=== PATIENT | female | born 1990 | race African-American/Black ===

== ENCOUNTER 2022-06-21 08:39 | Emergency (ER) | payer OTHER, SELFPAY ==
--- NOTE | ~2022-06-21 | US_ITS ---
EXAMINATION: US pelvic complete DATE: 06/21/2022 10:54 INDICATION: Heavy vaginal bleeding. TECHNIQUE: Multiple transabdominal sonographic images of the pelvis were obtained. COMPARISON: None. FINDINGS: The uterus measures 10.8 x 6.4 x 8.0 cm. There is no free fluid in the pelvis. There are least 4 uter ine fibroids. For example, there is a 4.4 cm submucosal fibroid. There is a 2.5 cm intramural fibroid . There is a 2.6 cm submucosal fibroid. There is a 2.5 cm subserosal fibroid. The endometrial complex measures 3 mm in thickness. The right ovary is not visualized. The left ovary measures 3.3 x 4.7 x 1 .8 cm. There is normal vascular flow in left ovary. IMPRESSION: 1. Uterine fibroids. Reviewed, dictated and finalized at location A. IMPRESSION: 1. Uterine fibroids.
[2022-06-21 08:42] VITALS: BP 137/67; PULSE 60; RESP 20; TEMP 36.8; O2SAT 100
--- NOTE | 2022-06-21 09:10 | ED.FEMALEGU ---
HPI - Female Genitourinary General Chief complaint: Vaginal Bleeding Stated complaint: VAG BLEEDING Time Seen by Provider: 06/21/22 08:53 History of Present Illness HPI Narrative: Patient is a 32-year-old G3, P3 female here for evaluation of heavy vaginal bleeding over the past 10 days. Patient states that she started her menstrual cycle on time 10 days ago, it was normal in consistency for her, but she states that she has continued to spot and then has a another heavy day bleeding yesterday, passing several quarter sized blood clots. 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 Patient denies any lightheadedness, abdominal pain, back pain, fevers or chills. She has a history of a tubal ligation denies chance of . Related Data Allergies Allergy/AdvReac Type Severity Reaction Status Date / Time No Known Allergies Allergy Verified 06/21/22 09:06 Review of Systems Review of Systems: Gen.: Denies fevers or chills Eyes: Denies eye pain or visual change ENT: Denies congestion Respiratory: Denies shortness of breath or cough CV: Denies chest pain or palpitations GI: Denies abdominal pain nausea, emesis or diarrhea reports heavy vaginal bleeding. Denies burning, urgency, frequency or hematuria Musculoskeletal: Denies back pain or muscle pain Neuro: Denies numbness, tingling, weakness or focal weakness Skin: Denies rash Except as documented, all other systems reviewed and negative Exam Narrative: APPEARANCE: Well appearing, no pain in distress, well-nourished. Head: Normocephalic and atraumatic. EYES: PERRLA/EOMI, conjunctivae clear NOSE: No nasal drainage EARS: External ear normal in appearance THROAT: Oropharynx is clear. Mucous membranes are moist. NECK: Supple. No adenopathy, no masses. RESPIRATORY: Airway patent, respirations nonlabored. Clear to auscultation bilaterally, no rales, rhonchi, wheezing. CARDIOVASCULAR: Regular rate and rhythm without murmurs, rubs, or gallops. : cervical os is closed, no brisk vaginal bleeding noted, small amount of blood in vaginal vault ABDOMINAL: Normoactive bowel sounds. Soft, nontender, nondistended. No rebound tenderness or guarding. MUSCULOSKELETAL: Extremities are warm and well-perfused. Moves all extremities well. No edema. NEURO: Normal speech. No focal neurologic deficits. SKIN: Skin is warm and dry. No rashes. PSYCHIATRIC: Normal affect/mood. Course Vital Signs Vital signs: Vital Signs Temperature 98.3 F 06/21/22 08:42 Pulse Rate 60 06/21/22 08:42 Respiratory Rate 20 06/21/22 08:42 Blood Pressure 137/67 06/21/22 08:42 Pulse Oximetry 100 06/21/22 08:42 Oxygen Delivery Room Air 06/21/22 08:42 Temperature 98.3 F 06/21/22 08:42 Pulse Rate 60 06/21/22 08:42 Respiratory Rate 20 06/21/22 08:42 Blood Pressure 137/67 06/21/22 08:42 Pulse Oximetry 100 06/21/22 08:42 Oxygen Delivery Room Air 06/21/22 08:42 MDM - Female Genitourinary MDM Narrative Medical decision making narrative: 32-year-old female here for evaluation of heavy vaginal bleeding extending past her normal menstrual cycle for the past 5 days. Here she is nontoxic-appearing with normal vital signs, has no abdominal tenderness on exam. Urine is negative. She has a normocytic anemia with a hemoglobin of 8.6, patient tells me that she has been profoundly anemic in the past due to heavy menstrual cycles and is supposed to be taking iron supplementation, which she has not been. Her pelvic ultrasound revealed several small uterine fibroids which she was aware of. Her pelvic exam shows no brisk vaginal bleeding; cervical os is closed. Patient declines Provera as she tries to avoid hormones. We will send iron supplementation to the pharmacy for patient to take. Bleeding likely due to fibroids. She was encouraged
[2022-06-21 09:32] LABS: Basophils Percent Auto 0.8 % (0.2-1.2); Eosinophils Percent Auto 0.8 % (0-4.4); Hematocrit 28.4 % (37.0-47.0); Hemoglobin 8.6 g/dL (12.0-15.0); Immature Granulocyte Absolute 0.01 K/mm3 (0.00-0.031); Immature Granulocyte Percent A 0.3 % (0-0.5); Lymphocytes Absolute Auto 1.59 K/mm3 (0.9-3.2); Lymphocytes Percent Auto 40.5 % (18.3-44.2); Mean Corpuscular HGB Conc 30.3 g/dl (32-36); Mean Corpuscular Hemoglobin 25.4 pg (26-34); Mean Corpuscular Volume 83.8 fl (80-100); Mean Platelet Volume 11.2 fl (7.4-10.4); Monocytes Absolute Auto 0.2 K/mm3 (0.1-0.6); Monocytes Percent Auto 5.9 % (2.6-8.5); Neutrophils Percent Auto 51.7 % (45.5-73.1); Platelet Count Result 291 k/mm3 (150-375); Red Blood Count 3.39 M/mm3 (4.2-5.4); Red Cell Distribution Width 15.2 % (11.5-14.5); White Blood Count 3.9 K/mm3 (4.5-10.0)
[2022-06-21 09:40] LABS: Anion Gap 8 mmol/L (8-16); Blood Urea Nitrogen 10 mg/dL (7-17); Calcium 9.1 mg/dL (8.4-10.2); Carbon Dioxide 24 mmol/L (22-30); Chloride 107 mmol/L (98-107); Estimated Glomerular Filt Rate > 60; Glucose 94 mg/dL (65-110); Potassium 4.1 mmol/L (3.4-5.0); Sodium 139 mmol/L (137-145)
--- NOTE | 2022-06-21 10:24 | PC.NURSE ---
pt in ultrasound
[2022-06-21 12:15] LABS: Beta HCG Quantitative < 2.39 mIU/ML
== END 2022-06-21 12:13 | disposition home or self-care (01) ==
PROVIDERS: Physician Assistant; Emergency Provider Emergency Medicine
DX: D25.9 Leiomyoma of uterus, unspecified (principal); D64.9 Anemia, unspecified; T45.4X6A Underdosing of iron and its compounds, initial encounter; Z91.128 Patient's intentional underdosing of medication regimen for other reason
CPT/HCPCS: 36415; 76856; 80048; 81025; 84702; 85025; 86850; 86900; 86901; 99284

== ENCOUNTER 2023-01-31 08:32 | Emergency (ER) | payer OTHER, SELFPAY ==
--- NOTE | ~2023-01-31 | XR_ITS ---
Portable chest x-ray Comparison: None Clinical History: Cough Findings: Lungs are clear, without focal consolidation or pleural effusion. Cardiomediastinal silho uette is stable. Bones and soft tissues are unremarkable. Impression: Normal chest. Reviewed, dictated and finalized at location M. Impression: Normal chest.
[2023-01-31 08:35] VITALS: BP 129/77; PULSE 114; RESP 16; TEMP 36.9; O2SAT 100
[2023-01-31] MEDS: IBUPROFEN 400 MG TABLET 800 MG PO (08:58)
[2023-01-31 09:21] LABS: Strep Group A RT-PCR DETECTED (Negative)
--- NOTE | 2023-01-31 09:22 | ED.URI ---
HPI - URI/Sore Throat General Chief Complaint: Upper Respiratory Infection Stated Complaint: flu sx Time Seen by Provider: 01/31/23 08:37 History of Present Illness HPI Narrative: Pt presents with fever, runny nose, cough and sore throat for 3 days. Pt syas the fever comes down with tylenol. Max 101. Pt denies vomiting or diarrhea. Pt has bodya ches. Related Data Allergies Allergy/AdvReac Type Severity Reaction Status Date / Time No Known Allergies Allergy Verified 06/21/22 09:06 Review of Systems Review of Systems: All systems reviewed & are unremarkable except as noted in HPI and below Exam Const: General: healthy appearing Nutritional Appearance: well nourished Orientation/consciousness: patient oriented x3 Limitations: no limitations HENMT: Face/Nose/Sinus: Nasal discharge present Mouth: Yes Normal oral and palatal mucosa present Other: pharynx erytematous no exudate. Neck: Neck: normal visual inspection, no lymphadenopathy and no meningeal signs Resp: Effort & Inspection: normal respiratory effort Auscultation: clear to auscultation bilaterally Cardio: Rate: regular rate Rhythm: regular rhythm GI: GI Palp: Yes Soft to palpation Auscultation: normal bowel sounds Back/Spine/Pelvis: Back: no CVA tenderness Skin: General skin exam: normal color Wounds: no wounds Neuro: General: patient oriented x3 Speech: normal speech Extrem: General: normal to inspection and no clubbing, cyanosis or edema Psych: Mental Status: mental status grossly normal Affect: normal affect Attitude: cooperative Course Vital Signs Vital signs: Vital Signs Temperature 98.4 F 01/31/23 08:35 Pulse Rate 114 H 01/31/23 08:35 Respiratory Rate 16 01/31/23 08:35 Blood Pressure 129/77 01/31/23 08:35 Pulse Oximetry 100 01/31/23 08:35 Oxygen Delivery Room Air 01/31/23 08:35 Temperature 98.4 F 01/31/23 08:35 Pulse Rate 114 H 01/31/23 08:35 Respiratory Rate 16 01/31/23 08:35 Blood Pressure 129/77 01/31/23 08:35 Pulse Oximetry 100 01/31/23 08:35 Oxygen Delivery Room Air 01/31/23 08:35 MDM - URI/Sore Throat MDM Narrative Medical decision making narrative: covid flu cxr neg, strep positive Differential Diagnosis Differential diagnosis: Likely upper respiratory infection, viral infection, bronchitis, influenza, pharyngitis and other (pneumonia) Lab Data Labs: Lab Results 01/31/23 Range/Units 08:46 Influenza A (RT-PCR) Negative (Negative) Influenza B (RT-PCR) Negative (Negative) SARS-CoV-2 RNA (RT-PCR) Negative (Negative) Group A Strep (PCR) Detected A (Negative) Discharge Plan Discharge Clinical Impression: Strep pharyngitis Patient Disposition: Home, Self-Care Condition: Stable Instructions: Antibiotic Form, Strep Throat (ED) Prescriptions: New amoxicillin 500 mg capsule 500 mg PO Q8H Qty: 30 0RF No Action ferrous sulfate [Iron (ferrous sulfate)] 325 mg (65 mg iron) tablet 325 mg PO DAILY Qty: 14 0RF Follow-up/Referrals: PHYSICIAN NOT ON STAFF,NONSTAFF [Primary Care Provider] -
[2023-01-31 09:39] LABS: Influenza A QL RT-PCR Negative (Negative); Influenza B QL RT-PCR Negative (Negative); SARS-CoV-2 RNA PCR Negative (Negative)
== END 2023-01-31 10:30 | disposition home or self-care (01) ==
PROVIDERS: Emergency Provider Emergency Medicine
DX: J02.0 Streptococcal pharyngitis (principal); Z20.822 Contact with and (suspected) exposure to COVID-19
CPT/HCPCS: 71045; 87636; 87651; 99283; A9270

== ENCOUNTER 2023-03-13 04:48 | Emergency (ER) | payer OTHER, SELFPAY ==
[2023-03-13 04:49] VITALS: BP 102/60; PULSE 82; RESP 16; TEMP 36.6; O2SAT 100
--- NOTE | 2023-03-13 05:08 | ED.GENADULT ---
HPI - General Adult General Chief complaint: Abdominal Pain Stated complaint: lower abd cramping Time Seen by Provider: 03/13/23 05:01 History of Present Illness HPI narrative: This is a 33-year-old female history of severe menstrual cramps and fibroids presenting with menstrual cramping. Patient said that her cycle started 2 days ago that. She has been having progressively worse cramping. It is in lower abdomen and radiates to her back. She has taken Motrin with no relief. This is the patient's typical menstrual cramping except worse in intensity. Patient is scheduled to have her uterus removed next month. Patient denies any other complaints. patient denies urinary complaints. No vaginal discharge or irritation. Related Data Allergies Allergy/AdvReac Type Severity Reaction Status Date / Time No Known Allergies Allergy Verified 06/21/22 09:06 [facility] Past Medical History Medical History Fibroid Exam Narrative: APPEARANCE: No apparent distress. well-appearing Head: atraumatic. EYES: EOMI, NOSE: Atraumatic NECK: Trachea midline RESPIRATORY: No increased rate of breathing, clear to auscultation CARDIOVASCULAR: RRR, ABDOMINAL: soft, nontender no guarding or rebound no CVA tenderness MUSCULOSKELETAl: No obvious deformities NEURO: Alert. Moving 4/4 extremities SKIN:: Warm, dry. Normal color PSYCHIATRIC: Normal affect Course Vital Signs Vital signs: Vital Signs Temperature 97.8 F 03/13/23 04:49 Pulse Rate 82 03/13/23 04:49 Respiratory Rate 16 03/13/23 04:49 Blood Pressure 102/60 03/13/23 04:49 Pulse Oximetry 100 03/13/23 04:49 Oxygen Delivery Room Air 03/13/23 04:49 Temperature 97.8 F 03/13/23 04:49 Pulse Rate 82 03/13/23 04:49 Respiratory Rate 16 03/13/23 04:49 Blood Pressure 102/60 03/13/23 04:49 Pulse Oximetry 100 03/13/23 04:49 Oxygen Delivery Room Air 03/13/23 04:49 Medical Decision Making [facility] Narrative Medical decision making narrative: -Presentation: 33-year-old female with history of severe menstrual cramps presenting with severe menstrual cramps. -DDX includes but is not limited to:Severe menstrual cramps, UTI. -Co-morbidities complicating care: Fibroids -Social determinants of health: patient works for her 's company, lives with and 2 children -External Chart Review: review of ER notes for heavy menstrual bleeding in June of 2022 -Hx from independent Sources: none -Independent interpretation of studies: U preg negative -Discussion of Management/Consultants: none -Dx tests considered but not ordered: none -Procedures: none -Interventions: 15 mg IM Toradol, 1000 mg Tylenol, [place] 5 mg -Shared decision making / Disposition: patient be discharged with OBGYN follow-up. -RX Motrin, Tylenol Vital Signs Vital Signs: Vital Signs Temperature 97.8 F 03/13/23 04:49 Pulse Rate 82 03/13/23 04:49 Respiratory Rate 16 03/13/23 04:49 Blood Pressure 102/60 03/13/23 04:49 Pulse Oximetry 100 03/13/23 04:49 Oxygen Delivery Room Air 03/13/23 04:49 Temperature 97.8 F 03/13/23 04:49 Pulse Rate 82 03/13/23 04:49 Respiratory Rate 16 03/13/23 04:49 Blood Pressure 102/60 03/13/23 04:49 Pulse Oximetry 100 03/13/23 04:49 Oxygen Delivery Room Air 03/13/23 04:49 Discharge Plan Discharge Clinical Impression: Fibroid, Crampy pain associated with menses Patient Disposition: Home, Self-Care Condition: Stable Instructions: Antibiotic Form, Dysmenorrhea (ED) Additional Instructions: You were seen in the emergency department for severe menstrual cramps. Please take Motrin Tylenol for pain control. Please follow-up with your OBGYN for your scheduled hysterectomy. Please return emergency department if you develop fevers severe abdominal pain or intractable nausea or vomiting. He can return any time for re
[2023-03-13] MEDS: ONDANSETRON HCL ODT 4 MG TABLET PO (05:13)
[2023-03-13] MEDS: ACETAMINOPHEN 500 MG TABLET 1000 MG PO (05:13)
[2023-03-13] MEDS: HYDROcodone/acetaminophen (*CRX) 5-325 MG TABLET 1 TAB PO (05:14)
[2023-03-13] MEDS: KETOROLAC 30 MG/ML VIAL (*BKC) 15 MG IM (05:14)
== END 2023-03-13 05:30 | disposition home or self-care (01) ==
LOC: ANHED 05:26
PROVIDERS: Emergency Provider Emergency Medicine
DX: D25.9 Leiomyoma of uterus, unspecified (principal); N94.6 Dysmenorrhea, unspecified
CPT/HCPCS: 81025; 96372; 99283; A9270; J1885

== ENCOUNTER 2024-03-18 17:14 | Emergency (ER) | payer BC, SELFPAY ==
--- NOTE | ~2024-03-18 | XR_ITS ---
EXAMINATION: XR chest 2V Exam Date/Time: 03/18/2024 18:35 CDT HISTORY: chest pain, Pt states pain to bilateral breasts x 1mth Comparison: 01/31/2023. RESULT: Lines, tubes, and devices: None. Lungs and pleura: Clear. Cardiomediastinal silhouette: Stable. Other: No acute osseous or upper abdominal finding. IMPRESSION: No acute cardiopulmonary process. Reviewed, dictated and finalized at location K.
[2024-03-18 17:24] VITALS: BP 118/61; PULSE 76; RESP 16; TEMP 36.5; O2SAT 100
--- NOTE | 2024-03-18 17:36 | ECG_ITS ---
Test Date: 2024-03-18 18:59:58 Measurements Intervals [place] Rate: 60 P: 51 [place]: 160 QRS: 56 QRSD: 97 T: 30 QT: 417 QTc: 419 Interpretive Statements SINUS RHYTHM INCOMPLETE RIGHT BUNDLE BRANCH BLOCK BORDERLINE ECG No previous ECG available for comparison Electronically Signed On 03-19-2024 06:16:29 CDT by Mike Salcido D.O.
--- NOTE | 2024-03-18 17:36 | ED.GENADULT ---
HPI - General Adult General Chief complaint: Unspecified Stated complaint: pain to sides of breasts bilaterally Time Seen by Provider: 03/18/24 17:31 Source: patient Mode of arrival: ambulatory Limitations: no limitations History of Present Illness HPI narrative: This is a 34 year old female that presents to the ER for bilateral chest pain. Reports radiation to her back. No known alleviating or exacerbating factors. Pain is achy in nature and intermittent. She hasn't been taking anything for pain. Reports she had a similar problem at the end of her menstrual cycle last month. She just got off of her cycle this month. Denies fever, cough, shortness of breath or swelling in her legs. Related Data Home Medications Medication Instructions Recorded Confirmed No Home Medications 03/18/24 03/18/24 Allergies Allergy/AdvReac Type Severity Reaction Status Date / Time No Known Allergies Allergy Verified 03/18/24 18:31 Review of Systems Review of Systems: CONSTITUTIONAL: Denies fever CARDIOVASCULAR: Reports chest pain. Denies palpitations, or edema. RESPIRATORY: Denies cough or dyspnea. All systems reviewed & are unremarkable except as noted in HPI and below PMFSH Past Medical History Medical History Fibroid Social History Social History (Updated 03/18/24 @ 17:38 by Denice Krause PA-C) Smoking status: Never smoker Exam Narrative: GENERAL: Well-appearing, well-nourished, and in no acute distress. HEAD: Normocephalic, atraumatic. EYES: EOMI. NECK: Supple. No JVD CHEST: Clear to auscultation. No respiratory distress. No wheezes rales or rhonchi HEART: Regular rate and rhythm. No murmur heard. Normal peripheral pulses. EXTREMITIES: Normal range of motion. No edema. SKIN: Warm, dry, no rash. NEURO: No focal deficits. Alert and oriented x3. PSYCH: Normal mood and affect Course Course Emergency Course: patient updated on her workup agrees with plan of care Vital Signs Vital signs: Vital Signs Temperature 97.7 F 03/18/24 17:24 Pulse Rate 76 03/18/24 17:24 Respiratory Rate 16 03/18/24 17:24 Blood Pressure 118/61 03/18/24 17:24 Pulse Oximetry 100 03/18/24 17:24 Oxygen Delivery Room Air 03/18/24 17:24 Temperature 97.7 F 03/18/24 17:24 Pulse Rate 76 03/18/24 17:24 Respiratory Rate 16 03/18/24 17:24 Blood Pressure 118/61 03/18/24 17:24 Pulse Oximetry 100 03/18/24 17:24 Oxygen Delivery Room Air 03/18/24 17:24 Medical Decision Making MDM Narrative Medical decision making narrative: Patient presents to the emergency department for intermittent chest pains. Ongoing over the last couple of days. Associated with the end of her menses. her vitals are stable. She is in no acute distress. CBC shows microcytic anemia hemoglobin of 7.8. Patient has known history of this due to her heavy menstrual cycles. Metabolic panel without concerning findings. EKG without concerning changes and baseline troponin is negative. Chest x-ray without acute cardiopulmonary abnormality. patient updated on her workup agrees with plan of care. 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 She was given warnings to return to the ER Differential Diagnosis Differential Diagnosis: chest pain, atypical chest pain, anemia, anxiety, muscle strain Vital Signs Vital Signs: Vital Signs Temperature 97.7 F 03/18/24 17:24 Pulse Rate 76 03/18/24 17:24 Respiratory Rate 16 03/18/24 17:24 Blood Pressure 118/61 03/18/24 17:24 Pulse Oximetry 100 03/18/24 17:24 Oxygen Delivery Room Air 03/18/24 17:24 Temperature 97.7 F 03/18/24 17:24 Pulse Rate 76 03/18/24 17:24 Respiratory Rate 16 03/18/24 17:24 Blood Pressure 118/61 03/18/24 17:24 Pulse Oximetry 100 03/18/24 17:24 Oxygen Delivery Room Air 03/18/24 17:24 Lab Data Lab results reviewed: Yes I reviewed the patient's lab res
[2024-03-18 18:17] LABS: Basophils Percent Auto 0.6 % (0.2-1.2); Eosinophils Percent Auto 0.8 % (0-4.4); Hematocrit 27.8 % (37.0-47.0); Hemoglobin 7.8 g/dL (12.0-15.0); Lymphocytes Percent Auto 52.9 % (18.3-44.2); Mean Corpuscular HGB Conc 28.1 g/dl (32-36); Mean Corpuscular Hemoglobin 20.4 pg (26-34); Mean Corpuscular Volume 72.6 fl (80-100); Mean Platelet Volume 10.8 fl (7.4-10.4); Monocytes Absolute Auto 0.3 K/mm3 (0.1-0.6); Monocytes Percent Auto 6.3 % (2.6-8.5); Neutrophils Absolute Auto 1.9 K/mm3 (1.3-6.7); Neutrophils Percent Auto 39.4 % (45.5-73.1); Platelet Count Result 308 k/mm3 (150-375); Red Blood Count 3.83 M/mm3 (4.2-5.4); Red Cell Distribution Width 19.6 % (11.5-14.5); White Blood Count 4.7 K/mm3 (4.5-10.0)
[2024-03-18 18:28] LABS: Alanine Aminotransferase 8 U/L (6-35); Albumin Level 4.5 g/dL (3.5-5.1); Alkaline Phosphatase 51 U/L (38-126); Anion Gap 6 mmol/L (4-12); Aspartate Amino Transferase 27 U/L (14-36); Bilirubin,Total 0.9 mg/dL (0.2-1.3); Blood Urea Nitrogen 12 mg/dL (7-17); Calcium 9.1 mg/dL (8.4-10.2); Carbon Dioxide 26 mmol/L (22-30); Chloride 108 mmol/L (98-107); Estimated CRCL calculation 91 ml/min; Estimated Glomerular Filt Rate > 60; Glucose 95 mg/dL (65-110); Potassium 4.1 mmol/L (3.4-5.0); Sodium 140 mmol/L (137-145)
[2024-03-18 18:39] LABS: Troponin I < 0.012 ng/mL (0.000-0.034)
[2024-03-18 18:45] LABS: Anisocytosis 1+; Hypochromasia 1+; Microcytosis 1+ (NORMAL); Platelet Estimate Adequate (Adequate)
[2024-03-18 18:46] LABS: Ovalocytes 1+; Schistocytes None Seen
--- NOTE | 2024-03-18 19:10 | PC.NURSE ---
report Given to BELTRAN Varner
== END 2024-03-18 19:55 | disposition home or self-care (01) ==
PROVIDERS: Emergency Provider Physician Assistant
DX: R07.9 Chest pain, unspecified (principal); D64.9 Anemia, unspecified; I45.10 Unspecified right bundle-branch block
CPT/HCPCS: 36415; 71046; 80053; 84484; 85025; 93005; 99284